=== PATIENT | female | born 1945 | race Caucasian/White ===

== ENCOUNTER 2018-12-24 15:53 | Inpatient (IN) | payer MEDICARE, OTHER ==
[~2018-12-24] VITALS: Ht 157.5 cm; Wt 66.7 kg
[~2018-12-24 15:53] MED LIST: ALBU8.5H8 INH; BUSP15TA3; CARI350T PO; CYCL5TAB; DIAZ10TA4; HYDR-3504; LACT10SO; LAMO100T; MORP15TA3; OMEP40CA6; ONDA8TAB83; RTPRO NEB; TOPI25TA10 PO; ZOLP5TAB7
[2018-12-24 16:25] VITALS: Ht 157.5 cm; Wt 66.7 kg
[2018-12-24] MEDS ORDERED: SOD CHLORIDE 0.9% 500 ML IV STA (20:05)
--- NOTE | 2018-12-24 22:28 | ERD ---
ER Documentation Chief Complaint Chief Complaint SENT FOR DR WHATLEY FOR LOW HGB/HCT HPI This is a very pleasant 73-year-old female with a past medical history of arthritis and status post surgical intervention of her left shoulder with an arthroscopy and cement placement 12 days prior to arrival. The patient indicates for the past week she has been feeling very weak and tired. She has been short of breath at rest. She has had no fevers or shaking or chills. She denies any hemoptysis hematemesis or melanotic stools. She does complain of mild calf tenderness which she states is exacerbated whenever she touches her legs. She denies any swelling of her lower extremities. She is not on any anticoagulants. She denies any chest pain or pressure. Patient indicated that she went to her primary care physician's office, Dr. Whatley, yesterday for further evaluation outpatient ancillary laboratory work have been performed. The patient received a call that she needs to go to the emergency department immediately due to her hemoglobin being very low ROS All systems reviewed and are negative except as per history of present illness. Medications Home Meds Active Scripts Albuterol Sulfate* (Proair HFA*) 8.5 Gm Hfa.aer.ad, 2 PUFF INH Q4, #1 INHALER Prov:RAVINDER BARRERA PA-C 02/26/16 Albuterol Sulfate* (Proventil* Neb) 0.083% Neb, 2.5 MG NEB Q4 PRN for SHORTNESS OF BREATH, #30 EA Prov:RAVINDER BARRERA PA-C 02/26/16 Carisoprodol* (Soma*) 350 Mg Tablet, 350 MG PO TID PRN for MUSCLE SPASMS, #15 TAB Prov:CARLOS CHOWDHURY PA-C 11/10/15 Reported Medications Morphine Sulfate (Morphine Sulfate ER) 15 Mg Tablet.er, #60 11/10/15 Omeprazole* (Omeprazole*) 40 Mg Capsule., #90 11/10/15 Diazepam* (Diazepam*) 10 Mg Tablet, #60 11/10/15 Zolpidem Tartrate* (Zolpidem Tartrate*) 5 Mg Tablet, #30 11/10/15 Topiramate* (Topiramate*) 25 Mg Tablet, #180 11/10/15 Buspirone Hcl* (Buspirone Hcl*) 15 Mg Tablet, #120 2/18/16 Lamotrigine* (Lamotrigine*) 100 Mg Tablet, #90 16 Ondansetron Hcl* (Ondansetron Hcl*) 8 Mg Tablet, #12 11/10/15 Lactulose* (Generlac*) 10 G/15 Ml Solution, #240 11/10/15 Cyclobenzaprine Hcl* (Cyclobenzaprine Hcl*) 5 Mg Tablet, #30 16 Hydrocodone Bit-Acetaminophen (Hydrocodone-APAP) 10-325MG Tablet, #90 11/10/15 Allergies Allergies: Coded Allergies: ibuprofen (Verified Allergy, Unknown, 11/09/15) PMhx/Soc History of Surgery: Yes (billateral knees, hands, tubal ligation, appendix, L shoulder) Anesthesia Reaction: No Hx Neurological Disorder: No Hx Respiratory Disorders: No Hx Cardiac Disorders: No Hx Psychiatric Problems: Yes (depression, anxiety, 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 Well-nourished. HEENT:Normocephalic. Atraumatic.Pupils were equal round reactive to light. Moist mucous membranes.No tonsillar exudates. Conjunctival pallor Neck: No nuchal rigidity. No lymphadenopathy. No posterior cervical spine tenderness or step-offs. Respiratory: Not using accessory muscles of respiration.Lungs were clear to auscultation bilaterally. No rhonchi. No rales. No wheezing. Cardiovascular: Regular rate regular rhythm.No murmurs. No rubs were appreciated.S1, S2 normal. Distal pulses are palpable 2+ bilaterally. GI: Abdomen was soft. Nontender. Non Distended. No pulsatile abdominal masses or bruits. No rebound. No guarding. Bowel sounds were present and normal. Muscle skeletal: Full range of motion in the bilateral lower extremities. Patient unable to AB duct the left upper extremity due to recent surgical intervention. The patient had surgical excision site on the anterior aspect of the left humeral head which was clean dry and intact with no purulent drainage. Compartments are soft of the bilateral upper extremities. Skin: No petechia, no purpura. No lesions on the palms or the soles of the feet. No maculopapular rash. NEURO: Patient was alert, awake, orientated x3.No facial droop. Gait observed and normal with no ataxia.Speech had regular rate and rhythm. No focal neurological deficits. Result Diagram: 12/24/18202512/24/182025 Results 24 hrs Laboratory Tests Test 12/24/18 20:26 White Blood Count 5.0 10^3/ul Red Blood Count 2.65 10^6/ul Hemoglobin 6.6 g/dl Hematocrit 22.0 % Mean Corpuscular Volume 83.0 fl Mean Corpuscular Hemoglobin 24.9 pg Mean Corpuscular Hemoglobin Concent 30.0 g/dl Red Cell Distribution Width 15.0 % Platelet Count 307 10^3/UL Mean Platelet Volume 7.7 fl Immature Granulocytes % 0.600 % Neutrophils % % Segmented Neutrophils % (Manual) 61 % Lymphocytes % % Lymphocytes % (Manual) 30 % Monocytes % % Monocytes % (Manual) 2 % Eosinophils % % Eosinophils % (Manual) 7 % Basophils % % Nucleated Red Blood Cells % 0.0 /100WBC Immature Granulocytes # 0.030 10^3/ul Neutrophils # 10^3/ul Lymphocytes (Manual) 1.5 10^3/ul Lymphocytes # 10^3/ul Monocytes # 10^3/ul Monocytes # (Manual) 0.1 10^3/ul Eosinophils # 10^3/ul Basophils # 10^3/ul Nucleated Red Blood Cells # 10^3/ul Pathologist Review (Hematology) YES Platelet Morphology Comment @See below Polychromasia 3+ Hypochromasia 1+ Poikilocytosis 1+ Anisocytosis 3+ Microcytosis 3+ Absolute Reticulocyte Count 0.064 X10^6 Percent Reticulocyte Count 2.4 % D-Dimer 3300.32 ng/ml D-Dimer Comment Sodium Level 138 mmol/L Potassium Level 3.9 mmol/L Chloride Level 104 mmol/L Carbon Dioxide Level 25 mmol/L Anion Gap 9 Blood Urea Nitrogen 5 mg/dl Creatinine 0.65 mg/dl Est Glomerular Filtrat Rate mL/min mL/min Glucose Level 126 mg/dl Calcium Level 9.0 mg/dl Iron Level < 10 ug/dl Total Iron Binding Capacity 344 ug/dl Percent Iron Saturation % SAT Ferritin 23.9 ng/ml Total Bilirubin 0.2 mg/dl Direct Bilirubin 0.00 mg/dl Indirect Bilirubin 0.2 mg/dl Aspartate Amino Transf (AST/SGOT) 17 IU/L Alanine Aminotransferase (ALT/SGPT) 17 IU/L Alkaline Phosphatase 101 IU/L Lactate Dehydrogenase 468 IU/L Total Protein 6.7 g/dl Albumin 3.8 g/dl Globulin 2.90 g/dl Albumin/Globulin Ratio 1.31 Current Medications Medications Dose Sig/Milly Start Time Status Last (Trade) Ordered Route PRN Stop Time Admin Dose Reason Admin Sodium 500 ml @ Q1H STAT 12/24/18 DC Chloride 500 mls/hr IV 20:05 12/24/18 21:04 Procedures/MDM Is a 73-year-old female appears with generalized weakness and abnormal ancillary laboratory work. The patient did show signs of clinical anemia and her hemoglobin was 6.6. The patient was placed on a cardiac rn continuous pulse oximetry and the patient received a blood transfusion with 2 units of packed red blood cells. The patient had no evidence of sepsis. The patient was also complaining of shortness of breath and given her recent surgical intervention she was an intermediate pretest probability according to the well's criteria. Therefore obtained a d-dimer and this was elevated. She underwent a CT scan of her chest reviewed by the radiologist myself and there was no evidence of a pulmonary embolism. Venous duplex ultrasound of the bilateral lower extremities were normal. The patient was given intravenous morphine and Zofran for analgesic control she was now complaining of mild shoulder pain. I reevaluated the patient with a focused physical exam around the patient's shoulder and there is no evidence of compartment syndrome, overlying postoperative infection or necrotizing fasciitis. I did feel this was positional given that the patient had been lying flat in the bed for several hours. 12 Lead EKG tracing ordered and reviewed by myself showed: Normal sinus rhythm of 73 bpm and no arrhythmia. VT interval normal. QRS duration normal. No ST segment elevation No ST segment depression. No changes consistent with acute ischemia. The patient will be admitted in serious condition under the care of her primary care physician Dr. Rushing. I do feel the patient required admission to the telemetry service in order to monitor for adverse effects that could occur during a blood transfusion. Critical Care: Time: 65 minutes Treatments/Evaluations: Close monitoring and treatment of unstable vital signs, cardiorespiratory, and neurologic status, while maintaining tight balance of fluid, respiratory, and cardiac interventions. Time does not include performing any of the above billable procedures. Departure Diagnosis: Primary Impression: Acute weakness Additional Impressions: Anemia Anemia type: unspecified type Qualified Codes: D64.9 - Anemia, unspecified Postoperative pain Shortness of breath Condition: Serious MAGO AUGUSTINE MD Dec 24, 2018 22:28
[2018-12-24] MEDS ORDERED: ONDANSETRON 4 MG INJ IV PRN (22:30)
[2018-12-24] MEDS ORDERED: ACETAMINOPHEN 325 MG TAB PO PRN (22:30)
[2018-12-24] MEDS ORDERED: ONDANSETRON 4 MG INJ IV STA (22:44)
[2018-12-24] MEDS ORDERED: morphine 4 MG/ML VIAL IV STA (22:44)
[2018-12-24] MEDS ORDERED: IODIXANOL LOCM 100 ML BTL ONE (22:55)
[2018-12-24] MEDS ORDERED: SOD CHLORIDE 0.9% 100 ML ONE (22:55)
[2018-12-25] VITALS (10 sets, daily range): BP systolic 118–140; BP diastolic 57–71; PULSE 63–82; RESP 18–19
[2018-12-25] MEDS ORDERED: ASPI-817 PO (00:07)
[2018-12-25] MEDS ORDERED: CRAN400T6 PO (00:07)
[2018-12-25] MEDS ORDERED: NORT25CA PO (00:07)
[2018-12-25] MEDS ORDERED: METH-417 PO (00:07)
[2018-12-25] MEDS ORDERED: ACET-141 PO (00:07)
[2018-12-25] MEDS ORDERED: INSU100I7 SQ (00:11)
[2018-12-25] MEDS ORDERED: BECL10.6 IH (00:11)
[2018-12-25] MEDS ORDERED: PREN-46 PO (00:11)
[2018-12-25] MEDS ORDERED: ACETAMINOPHEN 500 MG TAB PO PRN (02:00)
[2018-12-25] MEDS ORDERED: CARISOPRODOL 350 MG TAB PO PRN (02:00)
[2018-12-25] MEDS ORDERED: ALBUTEROL 0.083% (NEB) 2.5 MG/3 ML AMP NEB PRN (02:00)
[2018-12-25] MEDS: ALBUTEROL HFA 8 GM INHALER INH SCH ×5 (06:55→21:00)
[2018-12-25] MEDS ORDERED: ONDANSETRON 4 MG TAB PO PRN (07:00)
[2018-12-25] MEDS: BUSPIRONE 5 MG TAB PO SCH ×2 (08:06→20:45)
[2018-12-25] MEDS: NORTRIPTYLINE 25 MG CAP PO SCH ×3 (08:06→20:45)
[2018-12-25] MEDS: LAMOTRIGINE 100 MG TAB PO SCH ×3 (08:06→20:46)
[2018-12-25] MEDS: TOPIRAMATE 25 MG TAB PO SCH ×3 (08:06→20:45)
[2018-12-25] MEDS: METHADONE 5 MG TAB PO SCH ×2 (08:35→20:46)
[2018-12-25] MEDS ORDERED: ASPIRIN (EC) 81 MG TAB PO SCH (09:00)
[2018-12-25] MEDS ORDERED: LAMOTRIGINE 100 MG TAB PO SCH (09:00)
--- NOTE | 2018-12-25 11:28 | QN ---
Documentation Comment Patient seen and examined. Full note to follow SADIE BABB MD Dec 25, 2018 11:28
--- NOTE | 2018-12-25 12:23 | HP ---
Date/Time of Note Date/Time of Note DATE: 12/25/18 TIME: 12:03 Assessment/Plan VTE Prophylaxis Risk score (from [facility])>0 risk: 3 SCD applied (from [facility]): Yes SCD contraindicated: low risk/ambulating Pharmacological prophylaxis: NA/contraindicated Pharm contraindication: low risk/ambulating Lines/Catheters IV Catheter Type (from [facility]): Saline [employer] Central line still needed: No Urinary Cath still in place: No Assessment/Plan Problems: (1) Anemia Status: Acute Comment: s/p 2 units PRBC with symptomatic improvement Qualifiers: Anemia type: iron deficiency Iron deficiency anemia type: inadequate dietary iron intake Qualified Codes: D50.8 - Other iron deficiency anemias Assessment/Plan Will consult Dr. Antony from GI services to assess the need for endoscopy and or colonoscopy. Schedule repeat H/H to assure no acute blood loss. start iron replacement Result Diagram: 12/25/18 0712 12/24/182025 Results 24hrs Laboratory Tests Test 12/24/18 20:26 12/25/18 07:12 12/25/18 07:42 White Blood Count 5.0 4.0 L Red Blood Count 2.65 L 3.62 #L Hemoglobin 6.6 *L 9.7 #L Hematocrit 22.0 L 30.6 #L Mean Corpuscular Volume 83.0 84.5 Mean Corpuscular Hemoglobin 24.9 L 26.8 L Mean Corpuscular Hemoglobin Concent 30.0 L 31.7 L Red Cell Distribution Width 15.0 H 15.3 H Platelet Count 307 314 Mean Platelet Volume 7.7 7.8 Immature Granulocytes % 0.600 H 0.500 H Neutrophils % 54.3 Segmented Neutrophils % (Manual) 61 Lymphocytes % 24.1 Lymphocytes % (Manual) 30 Monocytes % 11.9 H Monocytes % (Manual) 2 Eosinophils % 8.5 H Eosinophils % (Manual) 7 Basophils % 0.7 Nucleated Red Blood Cells % 0.0 0.0 Immature Granulocytes # 0.030 0.020 Neutrophils # 2.2 Lymphocytes (Manual) 1.5 Lymphocytes # 1.0 Monocytes # 0.5 Monocytes # (Manual) 0.1 L Eosinophils # 0.3 Basophils # 0.0 Nucleated Red Blood Cells # 0.0 Pathologist Review (Hematology) YES Platelet Morphology Comment @See below Polychromasia 3+ Hypochromasia 1+ Poikilocytosis 1+ Anisocytosis 3+ Microcytosis 3+ Absolute Reticulocyte Count 0.064 Percent Reticulocyte Count 2.4 H D-Dimer 3300.32 H D-Dimer Comment Sodium Level 138 Potassium Level 3.9 Chloride Level 104 Carbon Dioxide Level 25 Anion Gap 9 Blood Urea Nitrogen 5 L Creatinine 0.65 Est Glomerular Filtrat Rate mL/min Glucose Level 126 Calcium Level 9.0 Iron Level < 10 L Total Iron Binding Capacity 344 Percent Iron Saturation Ferritin 23.9 Total Bilirubin 0.2 Direct Bilirubin 0.00 Indirect Bilirubin 0.2 Aspartate Amino Transf (AST/SGOT) 17 Alanine Aminotransferase (ALT/SGPT) 17 Alkaline Phosphatase 101 Lactate Dehydrogenase 468 Total Protein 6.7 Albumin 3.8 Globulin 2.90 Albumin/Globulin Ratio 1.31 Lab Scanned Report REFERENCE LAB HPI/ROS Admit Date/Time Admit Date/Time Dec 24, 2018 at 22:17 Hx of Present Illness 73 year old woman s/p recent shoulder surgery 2 weeks ago states she was feeling lightheaded and short of breath. She went to see her PMD for evaluations. Blood work was done and the Hemoglobin was found to be at 6.8g/L. She was notified to go to [facility] for further evaluation. She denies CP, hematemesis, hemoptysis, hematochezia or melena. She has not experienced epigastric discomfort. Her iron levels in the [facility] were extremely lowShe does not eat red meat or foods rich in iron. Stool in [facility] was negative for guiac. Imaging studies were negative for thromboembolic events.Her H/H have remained stable fr 12/22/2018 to 12/25/2018 suggesting no active bleed. She will be admitted for blood transfusion and further w/u of her iron deficiency anemia. ROS Constitutional: improved (improved after transfusion of PRBC) Eyes: no complaints ENT: no complaints Respiratory: shortness of breath (prior to transfusion) Cardiovascular: no complaints Gastrointestinal: no complaints Genitourinary: no complaints Musculoskeletal: swelling, other (left shoulder pain post-op) Skin: no complaints Neurologic: no complaints Endocrine: no complaints Lymphatic: no complaints Psychological: no complaints Immunologic: no complaints PMH/Family/Social Past Medical History Medical History: GERD, other (OA, asthma) Medications Current Medications Ondansetron HCl (Zofran Inj) 4 mg ER BRIDGE PRN IV NAUSEA/VOMITING; Start 12/24/18 at 22:30; Stop 12/25/18 at 22:29 Acetaminophen (Tylenol Tab) 650 mg ER BRIDGE PRN PO .MILD PAIN 1-3 OR TEMP; Start 12/24/18 at 22:30; Stop 12/25/18 at 22:29 Acetaminophen (Tylenol Tab) 500 mg Q4H PRN PO MILD PAIN(1-3)OR ELEVATED TEMP; Start 12/25/18 at 02:00 Albuterol (Ventolin Hfa) 2 puff Q4H RESP THERAPY INH Last administered on 12/25/18at 06:55; Admin Dose 2 PUFF; Start 12/25/18 at 05:00 Albuterol (Proventil 0.083% (Neb)) 2.5 mg Q4 PRN NEB SHORTNESS OF BREATH; Start 12/25/18 at 02:00 Buspirone HCl (Buspar) 15 mg BID PO Last administered on 12/25/18at 08:06; Admin Dose 15 MG; Start 12/25/18 at 09:00 Carisoprodol (Soma) 350 mg TID PRN PO MUSCLE SPASMS; Start 12/25/18 at 02:00 Methadone HCl (Methadone) 5 mg BID PO Last administered on 12/25/18at 08:35; Admin Dose 5 MG; Start 12/25/18 at 09:00 Nortriptyline HCl (Aventyl) 25 mg TID PO Last administered on 12/25/18at 08:06; Admin Dose 25 MG; Start 12/25/18 at 09:00 Topiramate (Topamax) 50 mg TID PO Last administered on 12/25/18at 08:06; Admin Dose 50 MG; Start 12/25/18 at 09:00 Lamotrigine (Lamictal) 100 mg TID PO Last administered on 12/25/18 08:06; Admin Dose 100 MG; Start 12/25/18 at 09:00 Ondansetron HCl (Zofran Tab) 8 mg Q6H PRN PO NAUSEA AND/OR VOMITING; Start 12/25/18 at 07:00 Ferrous Sulfate (Ferrous Sulfate (Ec)) 325 mg AC BREAKFAST DINNER PO ; Start 12/25/18 at 17:25 Coded Allergies: ibuprofen (Unverified Allergy, Unknown, 12/24/18) Past Surgical History Past Surgical Hx: appendectomy, endoscopy (does not remember when), other (hip surgery, right shoulder surgery and left shoulder surgery) Family History Significant Family History: no pertinent family hx Social History Alcohol Use: sober Smoking Status: Former smoker Drug Use: other (former substance abuse) Exam/Review of Systems Vital Signs Vitals Vital Signs Date Temp Pulse Resp B/P (MAP) Pulse Ox O2 O2 Flow FiO2 Time Delivery Rate 12/25/18 98.2 67 18 133/62 95 Room Air 11:04 (85) Intake and Output 12/24/18 12/24/18 12/25/18 1414:59 22:59 06:59 IntakeIntake Total 200 ml BalanceBalance 200 ml Exam Constitutional: alert, oriented, well developed Psych: nl mood/affect Eyes: nl conjunctiva, EOMI, PERRL ENMT: mucosa pink and moist Neck: supple, non-tender Respiratory: clear to auscultation, normal air movement Cardiovascular: regular rate and rhythm Gastrointestinal: soft, non-tender Musculoskeletal: other (Left shoulder in sling, joint deformity of the hands) Extremities: normal pulses, edema (none) Neurological: nl mental status, nl speech, nl strength Skin: nl SADIE Miguel MD Dec 25, 2018 12:13
[2018-12-25] MEDS: FERROUS SULFATE (EC) 325 MG TAB PO SCH (17:40)
[2018-12-25] MEDS: LACTULOSE 30ML CUP PO SCH ×3 (17:40→21:29)
--- NOTE | 2018-12-25 17:50 | CONS ---
DATE OF ADMISSION: 12/24/2018 DATE OF CONSULTATION: TYPE OF CONSULTATION: Gastroenterology. Dear Dr. Holland: Thank you for asking me to see Mrs. Figueroa in GI consultation. HISTORY OF PRESENT ILLNESS: The patient is a 73-year-old white female who is admitted to the [facility] because of severe anemia with hemoglobin of 6.6. She underwent a left shoulder surgery recently ma ana cristinae several weeks ago; however on a routine examination in the doctor's office, she was found to have a low hemoglobin. She denies having any nausea, vomiting or passing any kind of bleeding from the r ectum. No abdominal pain. No GI complaints. No weight loss. MEDICATIONS PRIOR TO ADMISSION: Include: 1. ProAir. 2. Soma. 3. Tylenol. 4. Aspirin. 5. Buspirone. 6. Lamotrigine. 7. Methadone. 8. Nortriptyline. 9. Omeprazole. 10. Topiramate. 11. Zofran. 12. Cranberry fruit. SOCIAL HISTORY: The patient does not smoke or drink. REVIEW OF SYSTEM: Positive for severe rheumatoid arthritis. PHYSICAL EXAMINATION: GENERAL: She is alert. She is well built. VITAL SIGNS: She is afebrile. Temperature 97.8, blood pressure is 118/57, pulse is 65. CARDIOVASCULAR: Normal heart sounds. RESPIRATORY: Normal breath sounds. ABDOMEN: Showed unremarkable findings. LABORATORY WORKUP: Potassium 3.9. Bilirubin 0.2, AST 17, ALT 17. Hemoglobin is 6.6, went up to 9.7 . IMAGING: Chest x-ray shows no acute process from anemia standpoint. There was a small nodule in the right lower lobe. CLINICAL IMPRESSION: 1. From the gastrointestinal standpoint, she has a severe anemia which is normocytic, normochromic a nd it is quite possible we may be dealing with anemia due to gastrointestinal bleeding either due to peptic ulcer disease or due to gastrointestinal malignancy or arteriovenous malformation of the gastr ointestinal tract. 2. She has rheumatoid arthritis and left shoulder surgery. PLAN: I recommend upper endoscopy as well as lower endoscopy. Once again, doctor, thank you for this consultation. Dictated By: DENIA LAUGHLIN/SOPHIE Conf#: [id number] DID#: [id number] CC: ARTUR HOLLAND MD;*EndCC*
[2018-12-25] MEDS ORDERED: POLYETHYLENE GLYCOL 3350 119 GM POWDER PO ONE (18:30)
[2018-12-26] VITALS (13 sets, daily range): BP systolic 120–170; BP diastolic 51–77; PULSE 56–86; RESP 14–22
[2018-12-26] MEDS: ALBUTEROL HFA 8 GM INHALER INH SCH ×6 (01:00→20:11)
[2018-12-26] MEDS: LACTULOSE 30ML CUP PO SCH ×6 (02:35→20:12)
[2018-12-26] MEDS ORDERED: PROPOFOL 200 MG INJ ONE (07:00)
[2018-12-26] MEDS: FERROUS SULFATE (EC) 325 MG TAB PO SCH ×2 (07:25→16:57)
[2018-12-26] MEDS: BUSPIRONE 5 MG TAB PO SCH ×2 (09:00→20:12)
[2018-12-26] MEDS: TOPIRAMATE 25 MG TAB PO SCH ×3 (09:00→20:12)
[2018-12-26] MEDS: NORTRIPTYLINE 25 MG CAP PO SCH ×3 (09:00→20:12)
[2018-12-26] MEDS: LAMOTRIGINE 100 MG TAB PO SCH ×3 (09:00→20:13)
[2018-12-26] MEDS: METHADONE 5 MG TAB PO SCH ×2 (09:00→20:13)
[2018-12-26] MEDS ORDERED: LIDOCAINE 100 MG SYRINGE ONE (15:06)
[2018-12-26] MEDS ORDERED: PROPOFOL 20 ML ONE (15:06)
--- NOTE | 2018-12-26 15:15 | PREAC ---
Date/Time of Note Date/Time of Note DATE: 12/26/18 TIME: 15:11 Anesthesia Eval and Record Evaluation Time Pre-Procedure Interview DATE: 12/26/18 TIME: 15:11 Age 73 Sex female NPO: 8 hrs Preoperative diagnosis anemia Planned procedure EGD / colonoscopy Past Medical History Past Medical History: Includes Pulm: Smoking Hx, Sleep Apnea, Asthma GI: GERD Heme: Anemia Surgery & Anesthesia Issues No known issue Meds Anticoagulation: No Beta Uday within 24 hr: No Reason Beta Uday not given: Pt. not on B-Uday Active Scripts Albuterol Sulfate* (Proair HFA*) 8.5 Gm Hfa.aer.ad, 2 PUFF INH Q4, #1 INHALER Prov:RAVINDER BARRERA PA-C 02/26/16 Albuterol Sulfate* (Proventil* Neb) 0.083% Neb, 2.5 MG NEB Q4 PRN for SHORTNESS OF BREATH, #30 EA Prov:RAVINDER BARRERA PA-C 02/26/16 Carisoprodol* (Soma*) 350 Mg Tablet, 350 MG PO TID PRN for MUSCLE SPASMS, #15 TA B Prov:CARLOS CHOWDHURY PA-C 11/10/15 Reported Medications Acetaminophen* (Acetaminophen*) 500 MG Extra Strength Tablet, 500 MG PO Q4H PRN for PAIN AND OR ELEVATED TEMP, TAB 12/25/18 Aspirin* (Aspirin* EC) 81 Mg Tablet.dr, 81 MG PO DAILY, TAB 12/25/18 Cranberry Fruit (Cranberry) 400 Mg Tablet, 400 MG PO, TAB 12/25/18 Nortriptyline Hcl* (Nortriptyline Hcl*) 25 Mg Capsule, 25 MG PO TID for 90 Days, #270 12/25/18 Methadone Hcl* (Methadone*) 5 Mg Tab, 5 MG PO BID for 30 Days, #60 12/25/18 Omeprazole* (Omeprazole*) 40 Mg Capsule.dr, #90 11/10/15 Topiramate* (Topiramate*) 25 Mg Tablet, 50 MG PO TID, #180 11/10/15 Buspirone Hcl* (Buspirone Hcl*) 15 Mg Tablet, BID, #120 11/10/15 Lamotrigine* (Lamotrigine*) 100 Mg Tablet, #90 11/10/15 Ondansetron Hcl* (Ondansetron Hcl*) 8 Mg Tablet, #12 11/10/15 Discontinued Reported Medications Vit #108/Iron/Fa ( ONE TABLET) 1 Each Tablet, 1 EACH PO DAILY, TAB 12/25/18 Beclomethasone Dipropionate (Qvar Redihaler (40 MCG)) 10.6 Gm Hfa.aeroba, 10.6 GM IH, INH 12/25/18 Insulin Lispro Protamin/Lispro (Humalog Mix 75-25 Kwikpen) 100 Unit/1 Ml Insuln.pen, 5 UNIT SQ 12/25/18 Morphine Sulfate (Morphine Sulfate ER) 15 Mg Tablet.er, #60 11/10/15 Diazepam* (Diazepam*) 10 Mg Tablet, #60 11/10/15 Zolpidem Tartrate* (Zolpidem Tartrate*) 5 Mg Tablet, #30 11/10/15 Lactulose* (Generlac*) 10 G/15 Ml Solution, #240 11/10/15 Cyclobenzaprine Hcl* (Cyclobenzaprine Hcl*) 5 Mg Tablet, #30 11/10/15 Hydrocodone Bit-Acetaminophen (Hydrocodone-APAP) 10-325MG Tablet, #90 11/10/15 Current Medications Acetaminophen (Tylenol Tab) 500 mg Q4H PRN PO MILD PAIN(1-3)OR ELEVATED TEMP; Start 12/25/18 at 02:00 Albuterol (Ventolin Hfa) 2 puff Q4H RESP THERAPY INH Last administered on 12/25/18at 17:40; Admin Dose 2 PUFF; Start 12/25/18 at 05:00 Albuterol (Proventil 0.083% (Neb)) 2.5 mg Q4 PRN NEB SHORTNESS OF BREATH; Start 12/25/18 at 02:00 Buspirone HCl (Buspar) 15 mg BID PO Last administered on 12/25/18at 20:45; Admin Dose 15 MG; Start 12/25/18 at 09:00 Carisoprodol (Soma) 350 mg TID PRN PO MUSCLE SPASMS; Start 12/25/18 at 02:00 Methadone HCl (Methadone) 5 mg BID PO Last administered on 12/25/18at 20:46; Admin Dose 5 MG; Start 12/25/18 at 09:00 Nortriptyline HCl (Aventyl) 25 mg TID PO Last administered on 12/25/18 20:45; Admin Dose 25 MG; Start 12/25/18 at 09:00 Topiramate (Topamax) 50 mg TID PO Last administered on 12/26/18at 13:00; Admin Dose 50 MG; Start 12/25/18 at 09:00 Lamotrigine (Lamictal) 100 mg TID PO Last administered on 12/25/18 20:46; Admin Dose 100 MG; Start 12/25/18 at 09:00 Ondansetron HCl (Zofran Tab) 8 mg Q6H PRN PO NAUSEA AND/OR VOMITING Last administered on 12/25/18 23:45; Admin Dose 8 MG; Start 12/25/18 at 07:00 Ferrous Sulfate (Ferrous Sulfate (Ec)) 325 mg AC BREAKFAST DINNER PO Last administered on 12/25/18 17:40; Admin Dose 325 MG; Start 12/25/18 at 17:25 Lactulose (Enulose) 20 gm Q4 PO Last administered on 12/26/18 05:45; Admin Dose 20 GM; Start 12/26/18 at 01:00 Meds reviewed: Yes Allergies Coded Allergies: ibuprofen (Unverified Allergy, Unknown, 12/24/18) Allergies Reviewed: Yes Labs/Studies Labs Reviewed: Reviewed by anesthesiologist Result Diagram: 12/25/18 1726 12/25/18 1726 Laboratory Tests 12/25/18 17:26 test: N/A Pre-procedure Exam Last vitals Vital Signs Date Temp Pulse Resp B/P (MAP) Pulse Ox O2 O2 Flow FiO2 Time Delivery Rate 12/26/18 96.6 65 22 170/77 98 15:07 (108) 12/26/18 Room Air 00:00 Airway: Adequate mouth opening Mallampati: Mallampati II Teeth: Normal Lung: Normal Heart: Normal ASA Physical Status ASA physical status: 3 Emergency: None Planned Anesthetic General/MAC: MAC Pre-operative Attestations Prior to commencing anesthesia and surgery, the patient was re-evaluated, there was verification of: *The patient's identity *The results of appropriate recent lab work and preoperative vital signs *The above evaluation not changing prior to induction *Anesthetic plan, risk benefits, alternative and complications discussed with patient/family; questions answered; patient/family understands, accepts and wishes to proceed. MARK JIMENEZ Dec 26, 2018 15:15
--- NOTE | 2018-12-26 15:59 | PAC ---
Date/Time of Note Date/Time of Note DATE: 12/26/18 TIME: 15:59 Post-Anesthesia Notes Post-Anesthesia Note Last documented vital signs Vital Signs Date Temp Pulse Resp B/P (MAP) Pulse Ox O2 O2 Flow FiO2 Time Delivery Rate 12/26/18 96.6 65 22 170/77 98 15:07 (108) 12/26/18 Room Air 00:00 Activity: WNL Respiratory function: WNL Cardiovascular function: WNL Mental status: Baseline Pain reasonably controlled: Yes Hydration appropriate: Yes Nausea/Vomiting absent: Yes MARK JIMENEZ Dec 26, 2018 15:59
[2018-12-26] MEDS ORDERED: LABETALOL HCL 20MG INJ IV PRN (16:00)
[2018-12-26] MEDS ORDERED: METOCLOPRAMIDE 10 MG INJ IV PRN (16:00)
[2018-12-26] MEDS ORDERED: SOD FERRIC GLUC COMPLX 125 MG in SOD CHLORIDE 0.9% 100 ML IVPB ONE ×2 (16:00→21:00)
[2018-12-26] MEDS ORDERED: ONDANSETRON 4 MG INJ IV PRN (16:00)
[2018-12-26] MEDS ORDERED: hydrALAzine 20 MG INJ IV PRN (16:00)
--- NOTE | 2018-12-26 16:04 | PN ---
Date/Time of Note Date/Time of Note DATE: 12/26/18 TIME: 16:02 Assessment/Plan VTE Prophylaxis Risk score (from Ns)>0 risk: 6 SCD applied (from [facility] [place]): Yes Pharmacological prophylaxis: NA/contraindicated Pharm contraindication: bleeding Lines/Catheters IV [facility] (from [facility] Saline Lock Urinary Cath still in place: No Assessment/Plan Problems: (1) Anemia Status: Acute Comment: There was mild gastritis on the EGD otherwise negative. Blood counts are good. Give IV iron to refill Possible morning discharge Qualifiers: Anemia type: iron deficiency Iron deficiency anemia type: inadequate dietary iron intake Qualified Codes: D50.8 - Other iron deficiency anemias Result Diagram: 12/25/18 1726 12/25/18 1726 Results 24hrs Laboratory Tests Test 12/25/18 17:26 12/26/18 05:28 Hemoglobin 10.4 L Hematocrit 32.5 L Sodium Level 139 Potassium Level 4.1 Chloride Level 105 Carbon Dioxide Level 24 Anion Gap 10 Blood Urea Nitrogen 10 Creatinine 0.71 Est Glomerular Filtrat Rate mL/min Glucose Level 96 Calcium Level 8.9 Lab Scanned Report BLOOD TRANSFUSION Subjective 24 Hr Interval Summary Free Text/Dictation Patient seen in GI lab post EGD and colonoscopy drowsy Respiratory: no complaints Cardiovascular: no complaints Gastrointestinal: no complaints Genitourinary: no complaints Exam/Review of Systems Exam Vitals Vital Signs Date Temp Pulse Resp B/P (MAP) Pulse Ox O2 O2 Flow FiO2 Time Delivery Rate 12/26/18 96.6 65 22 170/77 98 15:07 (108) 12/26/18 Room Air 00:00 Constitutional: alert, oriented Respiratory: clear to auscultation, normal air movement Cardiovascular: regular rate and rhythm, nl pulses Gastrointestinal: soft, nl liver, spleen, non-tender Results Results 24hrs Laboratory Tests Test 12/25/18 17:26 12/26/18 05:28 Hemoglobin 10.4 L Hematocrit 32.5 L Sodium Level 139 Potassium Level 4.1 Chloride Level 105 Carbon Dioxide Level 24 Anion Gap 10 Blood Urea Nitrogen 10 Creatinine 0.71 Est Glomerular Filtrat Rate mL/min Glucose Level 96 Calcium Level 8.9 Lab Scanned Report BLOOD TRANSFUSION Medications Medication Current Medications Acetaminophen (Tylenol Tab) 500 mg Q4H PRN PO MILD PAIN(1-3)OR ELEVATED TEMP; Start 12/25/18 at 02:00 Albuterol (Ventolin Hfa) 2 puff Q4H RESP THERAPY INH Last administered on 12/25/18 17:40; Admin Dose 2 PUFF; Start 12/25/18 at 05:00 Albuterol (Proventil 0.083% (Neb)) 2.5 mg Q4 PRN NEB SHORTNESS OF BREATH; Start 12/25/18 at 02:00 Buspirone HCl (Buspar) 15 mg BID PO Last administered on 12/25/18 20:45; Admin Dose 15 MG; Start 12/25/18 at 09:00 Carisoprodol (Soma) 350 mg TID PRN PO MUSCLE SPASMS; Start 12/25/18 at 02:00 Methadone HCl (Methadone) 5 mg BID PO Last administered on 12/25/18 20:46; Admin Dose 5 MG; Start 12/25/18 at 09:00 Nortriptyline HCl (Aventyl) 25 mg TID PO Last administered on 12/25/18 20:45; Admin Dose 25 MG; Start 12/25/18 at 09:00 Topiramate (Topamax) 50 mg TID PO Last administered on 12/26/18 13:00; Admin Dose 50 MG; Start 12/25/18 at 09:00 Lamotrigine (Lamictal) 100 mg TID PO Last administered on 12/25/18 20:46; Admin Dose 100 MG; Start 12/25/18 at 09:00 Ondansetron HCl (Zofran Tab) 8 mg Q6H PRN PO NAUSEA AND/OR VOMITING Last administered on 12/25/18 23:45; Admin Dose 8 MG; Start 12/25/18 at 07:00 Ferrous Sulfate (Ferrous Sulfate (Ec)) 325 mg AC BREAKFAST DINNER PO Last administered on 12/25/18 17:40; Admin Dose 325 MG; Start 12/25/18 at 17:25 Lactulose (Enulose) 20 gm Q4 PO Last administered on 12/26/18 05:45; Admin Dose 20 GM; Start 12/26/18 at 01:00 Ferric Sodium Gluconate Complex 125 mg/Sodium Chloride 100 ml @ 100 mls/hr DAILY@1300 IVPB ; Start 12/27/18 at 13:00; Stop 12/29/18 at 13:59 Ferric Sodium Gluconate Complex 125 mg/Sodium Chloride 100 ml @ 100 mls/hr ONCE ONCE IVPB ; Start 12/26/18 at 16:00; Stop 12/26/18 at 16:59 Ondansetron HCl (Zofran Inj) 4 mg PACU ORDER PRN IV NAUSEA/VOMITING; Start 12/26/18 at 16:00; Stop 12/26/18 at 21:00; Status UNV Metoclopramide HCl (Reglan) 10 mg PACU ORDER PRN IV NAUSEA/VOMITING; Start 12/26/18 at 16:00; Stop 12/26/18 at 21:00; Status UNV Labetalol HCl (Labetalol) 5 mg PACU ORDER PRN IV HIGH BLOOD PRESSURE; Start 12/26/18 at 16:00; Stop 12/26/18 at 21:00; Status UNV Hydralazine HCl (Apresoline) 5 mg PACU ORDER PRN IV HIGH BLOOD PRESSURE; Start 12/26/18 at 16:00; Stop 12/26/18 at 21:00; Status UNV MICHAEL MCNALLY MD Dec 26, 2018 16:04
[2018-12-27] VITALS (10 sets, daily range): BP systolic 124–152; BP diastolic 62–72; PULSE 58–86; RESP 18–19
[2018-12-27] MEDS: LACTULOSE 30ML CUP PO SCH ×6 (01:00→20:03)
[2018-12-27] MEDS: ALBUTEROL HFA 8 GM INHALER INH SCH ×6 (01:00→20:01)
[2018-12-27] MEDS: FERROUS SULFATE (EC) 325 MG TAB PO SCH ×2 (05:23→17:56)
[2018-12-27] MEDS: NORTRIPTYLINE 25 MG CAP PO SCH ×3 (08:52→20:02)
[2018-12-27] MEDS: TOPIRAMATE 25 MG TAB PO SCH ×3 (08:52→20:02)
[2018-12-27] MEDS: BUSPIRONE 5 MG TAB PO SCH ×2 (08:53→20:01)
[2018-12-27] MEDS: LAMOTRIGINE 100 MG TAB PO SCH ×3 (08:54→20:02)
[2018-12-27] MEDS: METHADONE 5 MG TAB PO SCH ×2 (08:55→20:02)
[2018-12-27] MEDS: PANTOPRAZOLE (EC) 40 MG TAB PO SCH ×2 (08:57→17:56)
--- NOTE | 2018-12-27 10:23 | PN ---
Date/Time of Note Date/Time of Note DATE: 12/27/18 TIME: 10:13 Assessment/Plan VTE Prophylaxis Risk score (from Ns)>0 risk: 4 SCD applied (from [facility] [place]): Yes Pharmacological prophylaxis: NA/contraindicated Pharm contraindication: bleeding Lines/Catheters [facility] Saline Lock Urinary Cath still in place: No Assessment/Plan Problems: (1) Anemia Status: Acute Comment: Severe Fe def. Surigcal losses plus questionable GI losses. No active bleeding on endoscopies per GI but multiple possible sources of bleeding found including acute gastritis (in the face of omeprazole use at home), diverticulosis, and hemorrhoids. Cont. IV Fe for 5 days total. Monitor CBC. D/c home post-therapy and if CBC stable. Qualifiers: Anemia type: iron deficiency Iron deficiency anemia type: inadequate dietary iron intake Qualified Codes: D50.8 - Other iron deficiency anemias (2) Shortness of breath Status: Resolved Comment: Resolved w/ improvement in anemia (3) Acute weakness Status: Resolved Comment: Resolved w/ improvement in anemia (4) Diverticulosis of large intestine without perforation or abscess without bleeding Status: Chronic Comment: Monitor for signs of bleeding. (5) Hemorrhoids Status: Chronic Comment: Monitor for signs of bleeding. Consider stool softeners. (6) Acute gastritis without bleeding Status: Acute Comment: Double omeprazole dose at home. Here give pantoprazole 40 mg bid (7) Gastro-esophageal reflux disease without esophagitis Status: Chronic Comment: Double omeprazole dose at home. Here give pantoprazole 40 mg bid (8) Postoperative pain Status: Acute Comment: Cont. methadone, nortriptyline, and soma (9) Mild persistent asthma, uncomplicated Status: Chronic Comment: albuterol prn (10) Anxiety disorder Status: Chronic Comment: Cont. buspirone, nortriptyline, lamotrigine, topiramate (11) Dysthymic disorder Status: Chronic Comment: Cont. buspirone, nortriptyline, lamotrigine, topiramate (12) Chronic pain Status: Chronic Comment: Cont. methadone, nortriptyline, and soma Result Diagram: 12/25/18 1726 12/25/18 1726 Subjective 24 Hr Interval Summary Constitutional: no complaints, improved Respiratory: no complaints; No shortness of breath (resolved since transfusion) Cardiovascular: no complaints Gastrointestinal: no complaints Genitourinary: no complaints Musculoskeletal: bone/joint pain (L shoulder but improving) Neurologic: no complaints Exam/Review of Systems Exam Vitals VS - Last 72 Hours, by Label Date Temp Pulse Resp B/P (MAP) Pulse Ox O2 O2 Flow FiO2 Time Delivery Rate 12/27/18 64 08:07 12/27/18 98.3 67 18 134/64 97 Room Air 07:28 (87) 12/27/18 61 04:04 12/27/18 98.3 65 19 124/62 93 Room Air 04:00 (82) 12/27/18 64 00:00 12/27/18 98.0 58 18 126/64 97 Room Air 00:00 (84) 12/26/18 70 20:00 12/26/18 98.4 65 17 135/65 95 Room Air 20:00 (88) 12/26/18 58 14 133/54 96 Room Air 16:25 (80) 12/26/18 58 14 132/56 96 Room Air 16:19 (81) 12/26/18 60 17 134/60 100 Nasal 3.0 16:14 (84) Cannula 12/26/18 56 14 124/57 100 Nasal 3.0 16:09 (79) Cannula 12/26/18 70 16:07 12/26/18 98.0 58 14 120/51 100 Nasal 3.0 16:04 (74) Cannula 12/26/18 96.6 65 22 170/77 98 15:07 (108) 12/26/18 64 12:13 12/26/18 67 08:10 12/26/18 97.8 69 18 136/68 97 07:37 (90) 12/26/18 66 04:00 12/26/18 98.3 62 19 139/63 96 04:00 (88) 12/26/18 98.0 82 19 136/60 99 Room Air 00:00 (85) 12/26/18 86 00:00 12/25/18 82 20:00 12/25/18 98.3 80 19 140/67 96 Room Air 20:00 (91) 12/25/18 63 16:36 12/25/18 97.8 65 18 118/57 96 Room Air 15:30 (77) 12/25/18 65 12:55 12/25/18 98.2 67 18 133/62 95 Room Air 11:04 (85) 12/25/18 67 09:53 12/25/18 98.3 68 18 128/60 99 Room Air 07:15 (82) 12/25/18 66 04:00 12/25/18 98.0 66 19 122/58 92 04:00 (79) 12/25/18 74 00:53 12/25/18 98.3 67 19 134/71 98 00:40 (92) 12/25/18 98.3 72 19 121/61 100 Room Air 00:32 (81) 12/24/18 98.3 71 19 136/57 100 Room Air 23:00 (83) 12/24/18 98.8 73 20 138/60 99 Room Air 20:30 (86) 12/24/18 99.3 82 20 126/69 97 16:25 (88) Vital Signs Date Temp Pulse Resp B/P (MAP) Pulse Ox O2 O2 Flow FiO2 Time Delivery Rate 12/27/18 64 08:07 12/27/18 98.3 18 134/64 97 Room Air 07:28 (87) 12/26/18 3.0 16:14 Intake and Output 12/26/18 12/26/18 12/27/18 1515:00 23:00 07:00 IntakeIntake Total 800 ml 600 ml 820 ml BalanceBalance 800 ml 600 ml 820 ml Constitutional: alert, oriented, well developed Psych: no complaints, nl mood/affect Respiratory: clear to auscultation, normal air movement Cardiovascular: regular rate and rhythm, nl pulses; No edema, No murmurs/extra sounds, No rub Gastrointestinal: soft, nl liver, spleen, non-tender, bowel sounds; No mass, No rebound or guarding Musculoskeletal: No nl extremities to inspection (L shoulder in brace/sling) Extremities: normal pulses; No cyanosis, No clubbing, No edema Neurological: 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, nl mental status, nl speech, nl strength Medications Medication Current Medications Acetaminophen (Tylenol Tab) 500 mg Q4H PRN PO MILD PAIN(1-3)OR ELEVATED TEMP; Start 12/25/18 at 02:00 Albuterol (Ventolin Hfa) 2 puff Q4H RESP THERAPY INH Last administered on 12/27/18at 05:23; Admin Dose 2 PUFF; Start 12/25/18 at 05:00 Albuterol (Proventil 0.083% (Neb)) 2.5 mg Q4 PRN NEB SHORTNESS OF BREATH; Start 12/25/18 at 02:00 Buspirone HCl (Buspar) 15 mg BID PO Last administered on 12/27/18 08:53; Admin Dose 15 MG; Start 12/25/18 at 09:00 Carisoprodol (Soma) 350 mg TID PRN PO MUSCLE SPASMS; Start 12/25/18 at 02:00 Methadone HCl (Methadone) 5 mg BID PO Last administered on 12/27/18 08:55; Admin Dose 5 MG; Start 12/25/18 at 09:00 Nortriptyline HCl (Aventyl) 25 mg TID PO Last administered on 12/27/18 08:52; Admin Dose 25 MG; Start 12/25/18 at 09:00 Topiramate (Topamax) 50 mg TID PO Last administered on 12/27/18 08:52; Admin Dose 50 MG; Start 12/25/18 at 09:00 Lamotrigine (Lamictal) 100 mg TID PO Last administered on 12/27/18 08:54; Admin Dose 100 MG; Start 12/25/18 at 09:00 Ondansetron HCl (Zofran Tab) 8 mg Q6H PRN PO NAUSEA AND/OR VOMITING Last administered on 12/25/18 23:45; Admin Dose 8 MG; Start 12/25/18 at 07:00 Ferrous Sulfate (Ferrous Sulfate (Ec)) 325 mg AC BREAKFAST DINNER PO Last administered on 12/27/18 05:23; Admin Dose 325 MG; Start 12/25/18 at 17:25 Lactulose (Enulose) 20 gm Q4 PO Last administered on 12/26/18 20:12; Admin Dose 20 GM; Start 12/26/18 at 01:00 Ferric Sodium Gluconate Complex 125 mg/Sodium Chloride 100 ml @ 100 mls/hr DAILY@1300 IVPB ; Start 12/27/18 at 13:00; Stop 12/29/18 at 13:59 Pantoprazole (Protonix Tab) 40 mg BID@06,18 PO Last administered on 12/27/18 08:57; Admin Dose 40 MG; Start 12/27/18 at 09:00 NATE MARTIN MD Dec 27, 2018 10:23
[2018-12-27] MEDS: SOD FERRIC GLUC COMPLX 125 MG in SOD CHLORIDE 0.9% 100 ML IVPB SCH (12:58)
[2018-12-28] VITALS (9 sets, daily range): BP systolic 113–146; BP diastolic 54–75; PULSE 62–84; RESP 18
[2018-12-28] MEDS: ALBUTEROL HFA 8 GM INHALER INH SCH ×6 (01:00→20:33)
[2018-12-28] MEDS: LACTULOSE 30ML CUP PO SCH ×6 (01:00→20:34)
[2018-12-28] MEDS: PANTOPRAZOLE (EC) 40 MG TAB PO SCH ×2 (05:29→17:05)
[2018-12-28] MEDS: FERROUS SULFATE (EC) 325 MG TAB PO SCH ×2 (05:34→17:04)
[2018-12-28] MEDS: METHADONE 5 MG TAB PO SCH ×2 (08:54→20:34)
[2018-12-28] MEDS: BUSPIRONE 5 MG TAB PO SCH ×2 (08:54→20:34)
[2018-12-28] MEDS: TOPIRAMATE 25 MG TAB PO SCH ×3 (08:54→20:33)
[2018-12-28] MEDS: NORTRIPTYLINE 25 MG CAP PO SCH ×3 (08:54→20:34)
[2018-12-28] MEDS: LAMOTRIGINE 100 MG TAB PO SCH ×3 (08:54→20:34)
--- NOTE | 2018-12-28 12:24 | PN ---
Date/Time of Note Date/Time of Note DATE: 12/28/18 TIME: 12:19 Assessment/Plan VTE Prophylaxis Risk score (from [facility] [place])>0 risk: 5 SCD applied (from [facility] [place]): Yes Pharmacological prophylaxis: NA/contraindicated Pharm contraindication: bleeding Lines/Catheters IV [facility] (from [facility] Saline Lock Urinary Cath still in place: No Assessment/Plan Problems: (1) Anemia Status: Acute Comment: H/H stable. Cont. IV Fe replacement w/ plan to receive final dosage tomorrow. Then can be d/c'ed home. Qualifiers: Anemia type: iron deficiency Iron deficiency anemia type: inadequate dietary iron intake Qualified Codes: D50.8 - Other iron deficiency anemias (2) Acute gastritis without bleeding Status: Acute Comment: No obvious bleeding on endoscopy. Cont. PPI. (3) Diverticulosis of large intestine without perforation or abscess without bleeding Status: Chronic Comment: No obvious bleeding on colonoscopy. Stool softeners if needed and monitor for bleeding in the future. (4) Hemorrhoids Status: Chronic Comment: No obvious bleeding on colonoscopy. Stool softeners if needed and monitor for bleeding in the future. (5) Postoperative pain Status: Acute Comment: On methadone, nortriptyline, and soma (6) Chronic pain Status: Chronic Comment: On methadone, nortriptyline, and soma (7) Gastro-esophageal reflux disease without esophagitis Status: Chronic Comment: Cont. PPI (8) Mild persistent asthma, uncomplicated Status: Chronic Comment: Albuterol prn (9) Anxiety disorder Status: Chronic Comment: On nortriptyline, lamotrigine, and topiramate. (10) Dysthymic disorder Status: Chronic Comment: On nortriptyline, lamotrigine, and topiramate. Result Diagram: 12/28/18 0610 12/25/18 1726 Results 24hrs Laboratory Tests Test 12/28/18 06:10 White Blood Count 4.6 L Red Blood Count 3.92 L Hemoglobin 10.3 L Hematocrit 34.1 L Mean Corpuscular Volume 87.0 Mean Corpuscular Hemoglobin 26.3 L Mean Corpuscular Hemoglobin Concent 30.2 L Red Cell Distribution Width 15.9 H Platelet Count 348 Mean Platelet Volume 7.9 Immature Granulocytes % 0.900 H Neutrophils % 50.5 Lymphocytes % 27.3 Monocytes % 10.5 Eosinophils % 9.7 H Basophils % 1.1 Nucleated Red Blood Cells % 0.0 Immature Granulocytes # 0.040 H Neutrophils # 2.3 Lymphocytes # 1.2 Monocytes # 0.5 Eosinophils # 0.4 Basophils # 0.1 Nucleated Red Blood Cells # 0.0 Subjective 24 Hr Interval Summary Constitutional: no complaints, improved Respiratory: no complaints; No shortness of breath Cardiovascular: no complaints; No lightheadedness Gastrointestinal: no complaints Genitourinary: no complaints Musculoskeletal: bone/joint pain (L shoulder but well-controlled) Neurologic: no complaints Exam/Review of Systems Exam Vitals VS - Last 72 Hours, by Label Date Temp Pulse Resp B/P (MAP) Pulse Ox O2 O2 Flow FiO2 Time Delivery Rate 12/28/18 97.6 82 18 145/70 97 Room Air 11:35 (95) 12/28/18 64 08:00 12/28/18 97.8 68 18 137/65 97 Room Air 07:25 (89) 12/28/18 62 04:00 12/28/18 98.3 63 18 113/54 96 04:00 (73) 12/28/18 98.4 68 18 133/63 98 00:00 (86) 12/28/18 65 00:00 12/27/18 98.6 80 19 152/72 98 20:00 (98) 12/27/18 86 20:00 12/27/18 75 16:13 12/27/18 98.5 75 18 129/69 98 Room Air 15:25 (89) 12/27/18 72 12:07 12/27/18 98.6 75 18 125/63 96 Room Air 11:20 (83) 12/27/18 64 08:07 12/27/18 98.3 67 18 134/64 97 Room Air 07:28 (87) 12/27/18 61 04:04 12/27/18 98.3 65 19 124/62 93 Room Air 04:00 (82) 12/27/18 64 00:00 12/27/18 98.0 58 18 126/64 97 Room Air 00:00 (84) 12/26/18 70 20:00 12/26/18 98.4 65 17 135/65 95 Room Air 20:00 (88) 12/26/18 58 14 133/54 96 Room Air 16:25 (80) 12/26/18 58 14 132/56 96 Room Air 16:19 (81) 12/26/18 60 17 134/60 100 Nasal 3.0 16:14 (84) Cannula 12/26/18 56 14 124/57 100 Nasal 3.0 16:09 (79) Cannula 12/26/18 70 16:07 12/26/18 98.0 58 14 120/51 100 Nasal 3.0 16:04 (74) Cannula 12/26/18 96.6 65 22 170/77 98 15:07 (108) 12/26/18 64 12:13 12/26/18 67 08:10 12/26/18 97.8 69 18 136/68 97 07:37 (90) 12/26/18 66 04:00 12/26/18 98.3 62 19 139/63 96 04:00 (88) 12/26/18 98.0 82 19 136/60 99 Room Air 00:00 (85) 12/26/18 86 00:00 12/25/18 82 20:00 12/25/18 98.3 80 19 140/67 96 Room Air 20:00 (91) 12/25/18 63 16:36 12/25/18 97.8 65 18 118/57 96 Room Air 15:30 (77) 12/25/18 65 12:55 Vital Signs Date Temp Pulse Resp B/P (MAP) Pulse Ox O2 O2 Flow FiO2 Time Delivery Rate 12/28/18 97.6 82 18 145/70 97 Room Air 11:35 (95) 12/26/18 3.0 16:14 Intake and Output 12/27/18 12/27/18 12/28/18 1515:00 23:00 07:00 IntakeIntake Total 1200 ml 1120 ml BalanceBalance 1200 ml 1120 ml Constitutional: alert, oriented, well developed Psych: no complaints, nl mood/affect Respiratory: clear to auscultation, normal air movement Cardiovascular: regular rate and rhythm, nl pulses; No edema, No murmurs/extra sounds, No rub Gastrointestinal: soft, nl liver, spleen, non-tender, bowel sounds; No mass, No rebound or guarding Musculoskeletal: nl extremities to inspection Extremities: normal pulses; No cyanosis, No clubbing, No edema Neurological: 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 II-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 intact, nl mental status, nl speech, nl strength Results Results 24hrs Laboratory Tests Test 12/28/18 06:10 White Blood Count 4.6 L Red Blood Count 3.92 L Hemoglobin 10.3 L Hematocrit 34.1 L Mean Corpuscular Volume 87.0 Mean Corpuscular Hemoglobin 26.3 L Mean Corpuscular Hemoglobin Concent 30.2 L Red Cell Distribution Width 15.9 H Platelet Count 348 Mean Platelet Volume 7.9 Immature Granulocytes % 0.900 H Neutrophils % 50.5 Lymphocytes % 27.3 Monocytes % 10.5 Eosinophils % 9.7 H Basophils % 1.1 Nucleated Red Blood Cells % 0.0 Immature Granulocytes # 0.040 H Neutrophils # 2.3 Lymphocytes # 1.2 Monocytes # 0.5 Eosinophils # 0.4 Basophils # 0.1 Nucleated Red Blood Cells # 0.0 Medications Medication Current Medications Acetaminophen (Tylenol Tab) 500 mg Q4H PRN PO MILD PAIN(1-3)OR ELEVATED TEMP; Start 12/25/18 at 02:00 Albuterol (Ventolin Hfa) 2 puff Q4H RESP THERAPY INH Last administered on 12/28/18at 08:55; Admin Dose 2 PUFF; Start 12/25/18 at 05:00 Albuterol (Proventil 0.083% (Neb)) 2.5 mg Q4 PRN NEB SHORTNESS OF BREATH; Start 12/25/18 at 02:00 Buspirone HCl (Buspar) 15 mg BID PO Last administered on 12/28/18at 08:54; Admin Dose 15 MG; Start 12/25/18 at 09:00 Carisoprodol (Soma) 350 mg TID PRN PO MUSCLE SPASMS; Start 12/25/18 at 02:00 Methadone HCl (Methadone) 5 mg BID PO Last administered on 12/28/18 08:54; Admin Dose 5 MG; Start 12/25/18 at 09:00 Nortriptyline HCl (Aventyl) 25 mg TID PO Last administered on 12/28/18 08:54; Admin Dose 25 MG; Start 12/25/18 at 09:00 Topiramate (Topamax) 50 mg TID PO Last administered on 12/28/18 08:54; Admin Dose 50 MG; Start 12/25/18 at 09:00 Lamotrigine (Lamictal) 100 mg TID PO Last administered on 12/28/18 08:54; Admin Dose 100 MG; Start 12/25/18 at 09:00 Ondansetron HCl (Zofran Tab) 8 mg Q6H PRN PO NAUSEA AND/OR VOMITING Last administered on 12/25/18 23:45; Admin Dose 8 MG; Start 12/25/18 at 07:00 Ferrous Sulfate (Ferrous Sulfate (Ec)) 325 mg AC BREAKFAST DINNER PO Last administered on 12/28/18 05:34; Admin Dose 325 MG; Start 12/25/18 at 17:25 Lactulose (Enulose) 20 gm Q4 PO Last administered on 12/28/18 08:53; Admin Dose 20 GM; Start 12/26/18 at 01:00 Ferric Sodium Gluconate Complex 125 mg/Sodium Chloride 100 ml @ 100 mls/hr DAILY@1300 IVPB Last administered on 12/27/18 12:58; Admin Dose 100 MLS/HR; Start 12/27/18 at 13:00; Stop 12/29/18 at 13:59 Pantoprazole (Protonix Tab) 40 mg BID@06,18 PO Last administered on 12/28/18 05:29; Admin Dose 40 MG; Start 12/27/18 at 09:00 NATE MARTIN MD Dec 28, 2018 12:24
[2018-12-28] MEDS: SOD FERRIC GLUC COMPLX 125 MG in SOD CHLORIDE 0.9% 100 ML IVPB SCH (14:59)
[2018-12-29] VITALS: BP 118/58; PULSE 68; PULSE 74; RESP 16
[2018-12-29] MEDS: ALBUTEROL HFA 8 GM INHALER INH SCH ×2 (01:00→05:00)
[2018-12-29] MEDS: LACTULOSE 30ML CUP PO SCH ×4 (01:00→12:05)
[2018-12-29 04:00] VITALS: BP 113/58; PULSE 64; RESP 16
[2018-12-29] MEDS: PANTOPRAZOLE (EC) 40 MG TAB PO SCH (05:33)
[2018-12-29] MEDS: FERROUS SULFATE (EC) 325 MG TAB PO SCH (05:34)
[2018-12-29 07:13] VITALS: BP 113/61; PULSE 68; RESP 18
[2018-12-29] MEDS: LAMOTRIGINE 100 MG TAB PO SCH ×2 (08:38→12:26)
[2018-12-29] MEDS: TOPIRAMATE 25 MG TAB PO SCH ×2 (08:39→12:26)
[2018-12-29] MEDS: METHADONE 5 MG TAB PO SCH (08:39)
[2018-12-29] MEDS: NORTRIPTYLINE 25 MG CAP PO SCH ×2 (08:39→12:26)
[2018-12-29] MEDS: BUSPIRONE 5 MG TAB PO SCH (08:41)
[2018-12-29 08:58] VITALS: PULSE 77
[2018-12-29 11:25] VITALS: BP 103/52; PULSE 71; RESP 18
[2018-12-29] MEDS: SOD FERRIC GLUC COMPLX 125 MG in SOD CHLORIDE 0.9% 100 ML IVPB SCH (12:26)
--- NOTE | 2018-12-29 12:44 | PN ---
Date/Time of Note Date/Time of Note DATE: 12/29/18 TIME: 12:41 Assessment/Plan VTE Prophylaxis Risk score (from Ns)>0 risk: 8 SCD applied (from [facility]): Yes Pharmacological prophylaxis: NA/contraindicated Pharm contraindication: bleeding Lines/Catheters IV Catheter Type (from Nrsg): Saline Lock Urinary Cath still in place: No Assessment/Plan Result Diagram: 12/28/18 0610 12/25/18 1726 Subjective 24 Hr Interval Summary Free Text/Dictation post op anemia, iron deficiency, no active bleeding on gi work up finishing five days iv iron, hgb back to normal, vs ok up and walking without sx. left shoulder remains in sling, will follow up with ortho post op alert, lungs clear, no ededma plan for dc today after iron infusion. office follow up in two weeks, one oral iron tab daily, continue all home meds Exam/Review of Systems Exam Vitals Vital Signs Date Temp Pulse Resp B/P (MAP) Pulse Ox O2 O2 Flow FiO2 Time Delivery Rate 12/29/18 97.9 71 18 103/52 97 Room Air 11:25 (69) 12/26/18 3.0 16:14 Intake and Output 12/28/18 12/28/18 12/29/18 1515:00 23:00 07:00 IntakeIntake Total 1400 ml 1250 ml BalanceBalance 1400 ml 1250 ml Medications Medication Current Medications Acetaminophen (Tylenol Tab) 500 mg Q4H PRN PO MILD PAIN(1-3)OR ELEVATED TEMP; Start 12/25/18 at 02:00 Albuterol (Ventolin Hfa) 2 puff Q4H RESP THERAPY INH Last administered on 12/28/18at 20:33; Admin Dose 2 PUFF; Start 12/25/18 at 05:00 Albuterol (Proventil 0.083% (Neb)) 2.5 mg Q4 PRN NEB SHORTNESS OF BREATH; Start 12/25/18 at 02:00 Buspirone HCl (Buspar) 15 mg BID PO Last administered on 12/29/18at 08:41; Admin Dose 15 MG; Start 12/25/18 at 09:00 Carisoprodol (Soma) 350 mg TID PRN PO MUSCLE SPASMS; Start 12/25/18 at 02:00 Methadone HCl (Methadone) 5 mg BID PO Last administered on 12/29/18 08:39; Admin Dose 5 MG; Start 12/25/18 at 09:00 Nortriptyline HCl (Aventyl) 25 mg TID PO Last administered on 12/29/18 12:26; Admin Dose 25 MG; Start 12/25/18 at 09:00 Topiramate (Topamax) 50 mg TID PO Last administered on 12/29/18 12:26; Admin Dose 50 MG; Start 12/25/18 at 09:00 Lamotrigine (Lamictal) 100 mg TID PO Last administered on 12/29/18 12:26; Admin Dose 100 MG; Start 12/25/18 at 09:00 Ondansetron HCl (Zofran Tab) 8 mg Q6H PRN PO NAUSEA AND/OR VOMITING Last administered on 12/25/18 23:45; Admin Dose 8 MG; Start 12/25/18 at 07:00 Ferrous Sulfate (Ferrous Sulfate (Ec)) 325 mg AC BREAKFAST DINNER PO Last administered on 12/29/18 05:34; Admin Dose 325 MG; Start 12/25/18 at 17:25 Lactulose (Enulose) 20 gm Q4 PO Last administered on 12/28/18 17:04; Admin Dose 20 GM; Start 12/26/18 at 01:00 Ferric Sodium Gluconate Complex 125 mg/Sodium Chloride 100 ml @ 100 mls/hr DAILY@1300 IVPB Last administered on 12/29/18 12:26; Admin Dose 100 MLS/HR; Start 12/27/18 at 13:00; Stop 12/29/18 at 13:59 Pantoprazole (Protonix Tab) 40 mg BID@06,18 PO Last administered on 12/29/18 05:33; Admin Dose 40 MG; Start 12/27/18 at 09:00 ARTUR WHATLEY MD Dec 29, 2018 12:44
--- NOTE | 2018-12-29 12:48 | PDOCDIS ---
Discharge Instructions CONDITION [id number] Patient Condition: [id number] Good HOME CARE INSTRUCTIONS: [id number] Diet Instructions: [id number] Regular ACTIVITY: [id number] Activity Restrictions: [id number] No Restrictions [id number] Bathing Restrictions: [id number] Shower FOLLOW UP/APPOINTMENTS Follow-up Plan see me dsin offsdice two weeks, see ortho p[er your appt OTHER ORDERS: Other Orders: take one over the counter iron tablet daily ARTUR WHATLEY MD Dec 29, 2018 12:48
[2018-12-29 13:17] VITALS: PULSE 78
--- NOTE | 2018-12-30 06:50 | DS ---
DATE OF ADMISSION: 12/24/2018 DATE OF DISCHARGE: 12/29/2018 CHIEF COMPLAINT: Weakness. FINAL DIAGNOSES: 1. Anemia felt secondary to iron deficiency, status post recent shoulder surgeries done twice. 2. Chronic pain syndrome. 3. Chronic severe kyphoscoliosis. DISCUSSION: Lorrie is a 73-year-old woman who was in her chronic pain management program who had comp lete shoulder surgery performed which failed and she had to have a second surgery done. She was feel ing very weak and ill. She came to the office and was found to have a hemoglobin in the 6 range and was advised to come to the emergency room. She has received blood transfusions. She was seen by Dr. Antony GI. Invasive procedures did not disclose any evidence for active bleeding. Her hemoglobin has remained stable in hospital. Hemoglobin yesterday was 10.3 with hematocrit of 34 up from an init ial hemoglobin of 6.6 and has been stable since transfusion with a hemoglobin on 12/25/2018 at 10.4. She has received intravenous iron for the last several days and will be discharged home today after conclusion of the last dose. She is to take one oral iron tablet daily. She will see me in the offi ce in 2 weeks for repeat of her CBC, et cetera. She is to continue all of her usual home medications and follow up with her orthopedic surgeon as well. FINAL DISCHARGE CONDITION: Good. FINAL DIAGNOSES: 1. Severe anemia secondary to iron deficiency and several recent surgical procedures without active gastrointestinal blood loss. 2. Kyphoscoliosis. 3. Chronic pain syndrome. Dictated By: ARTUR WHATLEY MD SR/NTS Conf#: [id number] DID#: [id number] CC: DENIA ANTONY MD;*End*
== END 2018-12-29 15:32 | disposition home or self-care (01) | DRG 812 ==
LOC: E/R 15:53 → TEL 22:17
PROVIDERS: ADMIT Internal Medicine; ATTEND Internal Medicine
PROC: 30233N1 Transfusion of Nonautologous Red Blood Cells into Peripheral Vein, Percutaneous Approach (ICD-10-PCS; 2018-12-24)
PROC: 30233N1 Transfusion of Nonautologous Red Blood Cells into Peripheral Vein, Percutaneous Approach (ICD-10-PCS; 2018-12-25)
PROC: 0DB78ZX Excision of Stomach, Pylorus, Via Natural or Artificial Opening Endoscopic, Diagnostic (ICD-10-PCS; 2018-12-26)
PROC: 0DJD8ZZ Inspection of Lower Intestinal Tract, Via Natural or Artificial Opening Endoscopic (ICD-10-PCS; principal; 2018-12-26 14:40)
PROC: 0DB68ZX Excision of Stomach, Via Natural or Artificial Opening Endoscopic, Diagnostic (ICD-10-PCS; 2018-12-26 14:40)
DX: D50.9 Iron deficiency anemia, unspecified (principal); M41.9 Scoliosis, unspecified; K21.9 Gastro-esophageal reflux disease without esophagitis; J45.909 Unspecified asthma, uncomplicated; M19.90 Unspecified osteoarthritis, unspecified site; G89.4 Chronic pain syndrome; K57.30 Diverticulosis of large intestine without perforation or abscess without bleeding; K64.8 Other hemorrhoids; K29.00 Acute gastritis without bleeding; Z87.891 Personal history of nicotine dependence
CPT/HCPCS: 36430; 71275; 80048; 80053; 82728; 83540; 83615; 84466; 85014; 85018; 85025; 85045; 85378; 86850; 86900; 86901; 86920; 88305; 93005; 93970; J2001; J2270; J2405; J2916; J7040; P9016; Q9967